=== PATIENT | male | born 1980 | race Caucasian/White ===

== ENCOUNTER → 2016-10-13 | Outpatient (CLI) | payer MEDICAID | LOC: OD 08:23 | PROVIDERS: ATTEND Nurse Practitioner Psychiatric/Mental Health | DX: F41.1 Generalized anxiety disorder (principal) | CPT/HCPCS: 36415; 80178 ==

== ENCOUNTER 2018-04-13 15:56 | Emergency (ER) | payer MEDICAID ==
[2018-04-13 16:44] VITALS: BP 133/84
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
[2018-04-13] MEDS ORDERED: HYDROCODONE/ACETAMINOPHEN 5-325 MG TABLET PO ONE (16:49)
[2018-04-13] MEDS ORDERED: PREDNISONE 20 MG TABLET PO ONE (16:56)
--- NOTE | 2018-04-13 17:39 | RADIOLOGY REPORT (SQ) ---
EXAM DESCRIPTION: SHOULDER LEFT 2 OR MORE VIEWS COMPLETED DATE/TIME: 04/13/2018 5:28 pm REASON FOR STUDY: pulled left shoulder injury today COMPARISON: None. NUMBER OF VIEWS: Three views. TECHNIQUE: Internal rotation, external rotation, and Y view images acquired of the left shoulder. LIMITATIONS: None. FINDINGS: MINERALIZATION: Normal. BONES: No acute fracture or dislocation. No worrisome bone lesions. JOINTS: No dislocation. VISUALIZED LUNGS AND RIBS: No pneumothorax. No rib fracture. SOFT TISSUES: No radiopaque foreign body. OTHER: No other significant finding. IMPRESSION: NO RADIOGRAPHIC EVIDENCE OF ACUTE INJURY. TECHNICAL DOCUMENTATION: JOB ID: [id number] 2010 [employer]- All Rights Reserved Reading location - IP/workstation name: [email or web address]
== END 2018-04-13 17:47 | disposition home or self-care (01) ==
LOC: ER 15:56
DX: S46.912A Strain of unspecified muscle, fascia and tendon at shoulder and upper arm level, left arm, initial encounter (principal); M54.2 Cervicalgia; X50.9XXA Other and unspecified overexertion or strenuous movements or postures, initial encounter; F17.200 Nicotine dependence, unspecified, uncomplicated; Z90.49 Acquired absence of other specified parts of digestive tract
CPT/HCPCS: 99283; 73030; J7512

== ENCOUNTER → 2018-06-12 | Outpatient (CLI) | payer MEDICAID ==
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
== END ==
LOC: OD 09:21
PROVIDERS: ATTEND Internal Medicine
DX: M13.0 Polyarthritis, unspecified (principal)

== ENCOUNTER 2018-08-03 10:54 | Emergency (ER) | payer MEDICAID ==
[2018-08-03 10:59] VITALS: BP 133/80
--- NOTE | 2018-08-03 12:12 | ER Document Report ---
ED Medical Screen (RME) - General Chief Complaint: General Weakness Stated Complaint: DIZZY/HEADACHE Time Seen by Provider: 08/03/18 12:04 TRAVEL OUTSIDE OF THE [place] IN LAST 30 DAYS: No - HPI Notes: 08/03/18 12:11 Patient is a 38-year-old male that presents to the emergency department for chief complaint of weight loss and generalized fatigue. Patient reports 20-25 pound weight loss over the last 2 weeks. He states he is eating and drinking normally. He denies any change in appetite. He reports he has had very minimal sporadic diarrhea but nothing significant. He denies nausea and vomiting. He also reports just feeling generalized fatigue as well as intermittent headaches. He takes levothyroxine for hypothyroidism and denies any change in medication or missed doses.. ROS: GENERAL: Denies fever of chills CV: Denies chest pain PHYSICAL EXAMINATION: GENERAL: Well-appearing, well-nourished and in no acute distress. HEAD: Atraumatic, normocephalic. EYES: Pupils equal round extraocular movements intact, conjunctiva are normal. ENT: Nares patent NECK: Normal range of motion LUNGS: No respiratory distress Musculoskeletal: Normal range of motion NEUROLOGICAL: Normal speech, normal gait. PSYCH: Normal mood, normal affect. MDM: Patient seen and examined for rapid initial assessment. Vital signs reviewed. A comprehensive ED assessment and evaluation of the patient, analysis of test results and completion of the medical decision making process will be conducted by additional ED providers. - Related Data Allergies/Adverse Reactions: methadone HCl [From Methadose] Allergy (Unknown, Verified 04/13/18 15:57) methadone Allergy (Verified 04/13/18 15:57) NSAIDS (Non-Steroidal Anti-Inflamma Allergy (Verified 04/13/18 15:57) Past Medical History - Social History Chew tobacco use (# tins/day): No Frequency of alcohol use: None Drug Abuse: None Pulmonary Medical History: Reports: Hx Asthma Neurological Medical History: Denies: Hx Cerebrovascular Accident Endocrine Medical History: Reports: Hx Hypothyroidism Renal/ Medical History: Denies: Hx Peritoneal Dialysis GI Medical History: Reports: Hx Gastroesophageal Reflux Disease Musculoskeltal Medical History: Reports Hx Arthritis Psychiatric Medical History: Reports: Hx Bipolar Disorder, Hx Depression, Hx Schizophrenia Past Surgical History: Reports: Hx Cholecystectomy, Hx Oral Surgery, Hx Orthopedic Surgery - toe repair, Hx Tonsillectomy - Immunizations Hx Diphtheria, Pertussis, Tetanus Vaccination: No Physical Exam - Vital signs Vitals: Temp Pulse Resp BP Pulse Ox 98.7 F 79 18 133/80 H 96 08/03/18 10:58 08/03/18 10:58 08/03/18 10:58 08/03/18 10:58 08/03/18 10:58 Course - Vital Signs Vital signs: Temp Pulse Resp BP Pulse Ox 98.7 F 79 18 133/80 H 96 08/03/18 10:58 08/03/18 10:58 08/03/18 11:56 08/03/18 10:58 08/03/18 10:58 Doctor's Discharge - Discharge Referrals: SOM SULLIVAN MD [Primary Care Provider] - Follow up as needed
[2018-08-03 12:48] LABS: ABSOLUTE BASOPHILS # (AUTO) 0.1 10^3/uL (0.0-0.2); ABSOLUTE LYMPHOCYTES (AUTO) 2.7 10^3/uL (0.5-4.7); ABSOLUTE MONOCYTES (AUTO) 0.7 10^3/uL (0.1-1.4); ABSOLUTE NEUT (AUTO) 5.4 10^3/uL (1.7-8.2); BASOPHILS % (AUTO) 1.1 % (0-2); EOSINOPHILS % (AUTO) 0.5 % (0-6); HEMATOCRIT 52.2 % (37.9-51.0); HEMOGLOBIN 17.6 g/dL (13.5-17.0); LYMPHOCYTES % (AUTO) 30.5 % (13-45); MEAN CORPUSCULAR HEMOGLOBIN 29.3 pg (27.0-33.4); MEAN CORPUSCULAR HGB CONC 33.7 g/dL (32.0-36.0); MEAN CORPUSCULAR VOLUME 87 fl (80-97); PLATELET COUNT 313 10^3/uL (150-450); RED CELL DISTRIBUTION WIDTH 13.8 % (11.5-14.0); SEGMENTED NEUTROPHILS % (AUTO) 59.9 % (42-78); TOTAL CELLS COUNTED % (AUTO) 100 %
--- NOTE | 2018-08-03 12:54 | RADIOLOGY REPORT (SQ) ---
EXAM DESCRIPTION: CT HEAD WITHOUT COMPLETED DATE/TIME: 08/03/2018 12:45 pm REASON FOR STUDY: headache COMPARISON: None. TECHNIQUE: Axial images acquired through the brain without intravenous contrast. Images reviewed wi th bone, brain and subdural windows. Additional sagittal and coronal reconstructions were generated. Images stored on PACS. All CT scanners at this facility use dose modulation, iterative reconstruction, and/or weight based d osing when appropriate to reduce radiation dose to as low as reasonably achievable (ALARA). [facility]: Dose Right [facility]: CareDose [facility]: Dose Right [facility]: Teradose 4D [facility]: Qiniu RADIATION DOSE: CT Rad equipment meets quality standard of care and radiation dose reduction techniq ues were employed. CTDIvol: 53.2 mGy. DLP: 1070 mGy-cm. mGy. LIMITATIONS: None. FINDINGS: VENTRICLES: Normal size and contour. CEREBRUM: No masses. No hemorrhage. No midline shift. No evidence for acute infarction. Normal gra y/white matter differentiation. No areas of low density in the white matter. CEREBELLUM: No masses. No hemorrhage. No alteration of density. No evidence for acute infarction. EXTRAAXIAL SPACES: No fluid collections. No masses. ORBITS AND GLOBE: No intra- or extraconal masses. Normal contour of globe without masses. CALVARIUM: No fracture. PARANASAL SINUSES: No fluid or mucosal thickening. SOFT TISSUES: No mass or hematoma. OTHER: No other significant finding. IMPRESSION: No acute intracranial pathology. No noncontrast CT findings to explain headaches. EVIDENCE OF ACUTE STROKE: NO. COMMENT: Quality ID # [id number]: Final reports with documentation of one or more dose reduction techniques (e.g., Automated exposure control, adjustment of the mA and/or kV according to patient size, use of iterative reconstruction technique) TECHNICAL DOCUMENTATION: JOB ID: [id number] [employer]- All Rights Reserved Reading location - IP/workstation name: [email or web address]
[2018-08-03] MEDS ORDERED: NORMAL SALINE 1000 ML 1,000 ML IV ONE (12:55)
[2018-08-03] MEDS ORDERED: NORMAL SALINE 1000 ML 1,000 ML IV PRN (12:55)
--- NOTE | 2018-08-03 12:58 | ER Document Report ---
ED Dizziness/Weakness - General Chief Complaint: General Weakness Stated Complaint: DIZZY/HEADACHE Time Seen by Provider: 08/03/18 12:04 Mode of Arrival: Ambulatory Information source: Patient Notes: History of Present Illness Chief Complaint: [dizziness] [ Patient is a 38-year-old male that presents to the emergency department for chief complaint of weight loss and generalized fatigue. Patient reports 20-25 pound weight loss over the last 2 weeks. He states he is eating and drinking normally. He denies any change in appetite. He reports he has had very minimal sporadic diarrhea but nothing significant. He denies nausea and vomiting. He also reports just feeling generalized fatigue as well as intermittent headaches. He takes levothyroxine for hypothyroidism and denies any change in medication or missed doses.. ] History obtained from [patient] Symptoms began:[ today] Onset: [gradual] Timing: [constant, lasts hours, persists] Quality: [Lightheadedness"] Activity at onset: [rest] Intensity: [moderate] Location: [generalized] Aggravating factors: [none] Relieving factors: [none] Denies neck pain or stiffness Denies visual loss or eye pain Denies head injury Denies incontinence, seizure, LOC Denies focal numbness Denies focal weakness Review of systems: All other systems negative as reviewed. CONSTITUTIONAL No fever. EYES No eye pain. ENT No URI symptoms, No sore throat, No ear pain. CARDIOVASCULAR No chest pain, No palpitations, No edema. RESPIRATORY No Cough, No SOB, No wheezing. GASTROINTESTINAL No abdominal pain, No vomiting, No diarrhea, No melena, No rectal bleeding. GENITOURINARY No UTI symptoms. MUSCULOSKELETAL No back pain. SKIN No Rash. NEUROLOGIC No Headache, No paralysis, No parathesias. ENDOCRINE No polyuria. HEMO/LYMPATIC Patient does not bruise easily. PSYCHIATRIC No depression. Physical Exam CONSTITUTIONAL Vital signs reviewed, Comfortable, Alert and oriented X 3. HEAD Atraumatic, Normal cephalic. EYES No discharge from eye, Sclera are not injected, Extraocular muscles intact, Conjunctiva are normal.perrl,2mm, no photophobia, no nystagmus, fundi wnl. ENT Ears normal to inspection, Nose examination normal, Oropharynx normal, Mucous membranes pink, moist, normal in color. NECK Normal inspection, supple, Normal ROM, No jugular venous distention, No meningeal signs, no carotid bruit or tenderness. RESPIRATORY/CHEST Chest is non-tender, Breath sounds normal, No respiratory distress. CARDIOVASCULAR RRR, Heart sounds normal. ABDOMEN Abdomen is non-tender, No masses, Bowel sounds normal, No distension, No peritoneal signs. BACK Normal inspection. UPPER EXTREMITY Inspection normal, No cyanosis/clubbing/edema.2+ radial pulses. LOWER EXTREMITY Inspection normal, No cyanosis/clubbing/edema, No calf tenderness.2+ femoral pulses. NEURO [ ]cn intact, no astreixis, no pronator drift, finger to nose testing coordinated bilaterally, 1+ deep tendon reflexes x 4 ext, down going babinski bilaterally, normal speech, Motor exam normal, Sensory exam normal. SKIN Body full of tattoos Skin is warm and dry, No rash.Capillary refill normal. LYMPHATIC No adenopathy in neck. PSYCHIATRIC Normal affect. TRAVEL OUTSIDE OF THE [place] IN LAST 30 DAYS: No - HPI Notes: Dictated - Related Data Allergies/Adverse Reactions: methadone HCl [From Methadose] Allergy (Unknown, Verified 04/13/18 15:57) methadone Allergy (Verified 04/13/18 15:57) NSAIDS (Non-Steroidal Anti-Inflamma Allergy (Verified 04/13/18 15:57) Past Medical History - Social History Smoking Status: Never Smoker Chew tobacco use (# tins/day): No Frequency of alcohol use: None Drug Abuse: None Lives with: Family Family History: Reviewed & Not Pertinent Patient has suicidal ideation: No Patient has homicidal ideation: No Pulmonary Medical History: Reports: Hx Asthma Neurological Medical History: Denies: Hx Cerebrovascular Accident Endocrine Medical History: Reports: Hx Hypothyroidism Renal/ Medical History: Denies: Hx Peritoneal Dialysis GI Medical History: Reports: Hx Gastroesophageal Reflux Disease Musculoskeletal Medical History: Reports Hx Arthritis Psychiatric Medical History: Reports: Hx Bipolar Disorder, Hx Depression, Hx Schizophrenia Past Surgical History: Reports: Hx Cholecystectomy, Hx Oral Surgery, Hx Orthopedic Surgery - toe repair, Hx Tonsillectomy - Immunizations Hx Diphtheria, Pertussis, Tetanus Vaccination: No Review of Systems - Review of Systems Notes: Dictated Physical Exam - Vital signs Vitals: Temp Pulse Resp BP Pulse Ox 98.7 F 79 18 133/80 H 96 08/03/18 10:58 08/03/18 10:58 08/03/18 10:58 08/03/18 10:58 08/03/18 10:58 - Notes Notes: Dictated Course - Vital Signs Vital signs: Temp Pulse Resp BP Pulse Ox 98.7 F 79 18 133/80 H 96 08/03/18 10:58 08/03/18 10:58 08/03/18 11:56 08/03/18 10:58 08/03/18 10:58 - Laboratory Result Diagrams: 08/03/18 12:34 08/03/18 12:34 Laboratory results interpreted by me: 08/03/18 08/03/18 12:34 12:34 RBC 6.00 H Hgb 17.6 H Hct 52.2 H TSH 23.60 H Free T4 0.45 L Discharge - Discharge Clinical Impression: Malaise Hypothyroidism Qualifiers: Hypothyroidism type: acquired Qualified Code(s): E03.9 - Hypothyroidism, unspecified Retained feces Qualifiers: Constipation type: slow transit constipation Qualified Code(s): K59.01 - Slow transit constipation Condition: Fair Instructions: Hypothyroidism ([facility]), Constipation ([facility]) Prescriptions: Lactulose [Cephulac Syrup 20 gm/30 ml Udcup] 20 gm PO DAILY #120 udc Levothyroxine Sodium [Synthroid 0.075 mg Tablet] 0.075 mg PO DAILY #30 tablet Referrals: SOM SULLIVAN MD [Primary Care Provider] - Follow up as needed
--- NOTE | 2018-08-03 13:15 | RADIOLOGY REPORT (SQ) ---
EXAM DESCRIPTION: CHEST SINGLE VIEW COMPLETED DATE/TIME: 08/03/2018 12:58 pm REASON FOR STUDY: fatigue COMPARISON: 07/11/2016 EXAM PARAMETERS: NUMBER OF VIEWS: One view. TECHNIQUE: Single frontal radiographic view of the chest acquired. RADIATION DOSE: NA LIMITATIONS: None. FINDINGS: LUNGS AND PLEURA: No opacities, masses or pneumothorax. No pleural effusion. MEDIASTINUM AND HILAR STRUCTURES: No masses. Contour normal. HEART AND VASCULAR STRUCTURES: Heart normal in size. Normal vasculature. BONES: No acute findings. HARDWARE: None in the chest. OTHER: No other significant finding. IMPRESSION: NO ACUTE RADIOGRAPHIC FINDING IN THE CHEST. TECHNICAL DOCUMENTATION: JOB ID: [id number] [employer]- All Rights Reserved Reading location - IP/workstation name: [email or web address]
[2018-08-03 13:20] LABS: ANION GAP 8 (5-19); BLOOD UREA NITROGEN 8 mg/dL (7-20); CALCIUM 9.7 mg/dL (8.4-10.2); CARBON DIOXIDE 29 mmol/L (22-30); CHLORIDE 103 mmol/L (98-107); GLUCOSE 101 mg/dL (75-110); POTASSIUM 4.5 mmol/L (3.6-5.0); SODIUM 139.6 mmol/L (137-145)
[2018-08-03 13:37] LABS: FREE T3 3.2 pg/mL (2.77-5.27); FREE T4 (FREE THYROXINE) 0.45 ng/dL (0.78-2.19)
[2018-08-03 13:51] LABS: THYROID STIMULATING HORMONE 23.6 uIU/mL (0.47-4.68)
--- NOTE | 2018-08-03 13:52 | RADIOLOGY REPORT (SQ) ---
EXAM DESCRIPTION: KUB/ABDOMEN (SINGLE VIEW) COMPLETED DATE/TIME: 08/03/2018 1:24 pm REASON FOR STUDY: Abdominal pain COMPARISON: None. NUMBER OF VIEWS: One view. TECHNIQUE: Supine radiographic image of the abdomen acquired. LIMITATIONS: None. FINDINGS: BOWEL GAS PATTERN: Normal bowel gas pattern. No dilated loops. CALCIFICATIONS: No suspicious calcifications. SOFT TISSUES: No gross mass or suggestion of organomegaly. HARDWARE: Surgical clips. BONES: No acute fracture. No worrisome bone lesions. OTHER: No other significant finding. IMPRESSION: NO RADIOGRAPHIC EVIDENCE FOR ACUTE ABDOMINAL DISEASE. TECHNICAL DOCUMENTATION: JOB ID: [id number] [employer]- All Rights Reserved Reading location - IP/workstation name: [email or web address]
[2018-08-03 13:53] LABS: APPEARANCE,URINE CLEAR; BILIRUBIN,URINE NEGATIVE (NEGATIVE); COLOR,URINE STRAW; GLUCOSE, URINE NEGATIVE (NEGATIVE); KETONES,URINE NEGATIVE (NEGATIVE); LEUKOCYTE ESTERASE,URINE NEGATIVE (NEGATIVE); NITRITE,URINE NEGATIVE (NEGATIVE); PROTEIN,URINE NEGATIVE (NEGATIVE); URINE SPECIFIC GRAVITY 1.005; UROBILINOGEN,URINE NEGATIVE mg/dL (<2.0)
[2018-08-03 14:18] LABS: URINE AMPHETAMINES SCREEN NEGATIVE; URINE BARBITURATES SCREEN NEGATIVE; URINE BENZODIAZEPINES SCREEN NEGATIVE; URINE COCAINE SCREEN NEGATIVE; URINE MARIJUANA (THC) SCREEN NEGATIVE; URINE METHADONE SCREEN NEGATIVE; URINE PHENCYCLIDINE SCREEN NEGATIVE
[2018-08-03] MEDS ORDERED: LEVOTHYROXINE SODIUM INJ/PF 0.5 MG SDV IV ONE (15:43)
[2018-08-03] MEDS ORDERED: LEVOTHYROXINE SODIUM 0.05 MG TABLET PO ONE (16:08)
== END 2018-08-03 16:24 | disposition home or self-care (01) ==
LOC: ER 10:54
DX: E03.9 Hypothyroidism, unspecified (principal); Z79.899 Other long term (current) drug therapy; K59.01 Slow transit constipation; R63.4 Abnormal weight loss; R42 Dizziness and giddiness; R53.81 Other malaise; R53.83 Other fatigue; R19.7 Diarrhea, unspecified; R51 Headache; J45.909 Unspecified asthma, uncomplicated; Z88.5 Allergy status to narcotic agent; Z88.8 Allergy status to other drugs, medicaments and biological substances
CPT/HCPCS: 99285; 96360; 36415; 84439; 83735; 84443; 85025; 80048; 81001; 80307; 84481; 71045; 74018; 70450; J3490; J7030

== ENCOUNTER 2018-12-11 22:46 | Emergency (ER) | payer MEDICAID ==
--- NOTE | 2018-12-11 23:28 | RADIOLOGY REPORT (SQ) ---
EXAM DESCRIPTION: XR HAND 1-2 VIEWS COMPLETED DATE/TME: 12/11/2018 00:00 CLINICAL HISTORY: 38 years, Male, injury Comparison: None FINDINGS: No fracture or dislocation. Soft tissues are unremarkable. IMPRESSION: No acute abnormality.
[2018-12-12] MEDS ORDERED: DOXYCYCLINE HYCLATE 100 MG TABLET PO ONE (00:46)
[2018-12-12] MEDS ORDERED: ACETAMINOPHEN WITH CODEINE #3 TABLET PO ONE (01:03)
--- NOTE | 2018-12-12 01:56 | ER Document Report ---
ED Hand/Wrist Injury - General Chief Complaint: Hand Injury Stated Complaint: FINGER LACERATION Time Seen by Provider: 12/11/18 23:44 Primary Care Provider: SOM SULLIVAN MD [Primary Care Provider] - Follow up as needed IVET ARIAS MD [ACTIVE STAFF] - Follow up as needed Mode of Arrival: Ambulatory Information source: Patient, Relative Notes: Patient is a 38-year-old male comes emergency room complaining of right middle finger injury. Patient states that he was changing a disc on an angle cylinder grinder this morning at home and evidently the disc had an short in the cord and has he was attempting to change the disc itself the shorted cord kicked on and caused the disc to turn in his hands causing a laceration to the palmar surface of the right middle finger. Patient did not think that much about it and will continue out working throughout the day but over the course of the day he is gotten a little more redness in that area and he is also gotten more swelling and a little bit more pain and discomfort. He is afraid it may be he is getting infected and possibly broke his finger when it kicked on. TRAVEL OUTSIDE OF THE [place] IN LAST 30 DAYS: No - HPI Injury to: Middle finger Onset: This morning Where: Home Timing: Constant, Still present Quality of pain: Achy, Sharp, Throbbing Severity: Moderate Pain Level: 3 Context: Swelling - Related Data Allergies/Adverse Reactions: methadone HCl [From Methadose] Allergy (Unknown, Verified 04/13/18 15:57) methadone Allergy (Verified 04/13/18 15:57) NSAIDS (Non-Steroidal Anti-Inflamma Allergy (Verified 04/13/18 15:57) Past Medical History - General Information source: Patient - Social History Smoking Status: Unknown if Ever Smoked Cigarette use (# per day): No Chew tobacco use (# tins/day): No Smoking Education Provided: No Drug Abuse: None Lives with: Family Family History: Reviewed & Not Pertinent Patient has suicidal ideation: No Patient has homicidal ideation: No Pulmonary Medical History: Reports: Hx Asthma Neurological Medical History: Denies: Hx Cerebrovascular Accident Endocrine Medical History: Reports: Hx Hypothyroidism Renal/ Medical History: Denies: Hx Peritoneal Dialysis GI Medical History: Reports: Hx Gastroesophageal Reflux Disease Musculoskeletal Medical History: Reports Hx Arthritis Psychiatric Medical History: Reports: Hx Bipolar Disorder, Hx Depression, Hx Schizophrenia Past Surgical History: Reports: Hx Cholecystectomy, Hx Oral Surgery, Hx Orthopedic Surgery - toe repair, Hx Tonsillectomy - Immunizations Hx Diphtheria, Pertussis, Tetanus Vaccination: No Review of Systems - Review of Systems Constitutional: No symptoms reported EENT: No symptoms reported Cardiovascular: No symptoms reported Respiratory: No symptoms reported Gastrointestinal: No symptoms reported Genitourinary: No symptoms reported Male Genitourinary: No symptoms reported Musculoskeletal: Muscle pain Skin: No symptoms reported, See HPI, Other - laceration right middle finger Hematologic/Lymphatic: No symptoms reported Neurological/Psychological: No symptoms reported -: Yes All other systems reviewed and negative Physical Exam - Vital signs Vitals: Temp Pulse Resp BP Pulse Ox 98.1 F 79 16 121/71 97 12/11/18 22:55 12/11/18 22:55 12/11/18 22:55 12/11/18 22:55 12/11/18 22:55 Interpretation: Normal - General General appearance: Appears well, Alert - Respiratory Respiratory status: No respiratory distress Chest status: Nontender Breath sounds: Normal, Rhonchi. No: Rales, Wheezing Chest palpation: Normal - Cardiovascular Rhythm: Regular Heart sounds: Normal auscultation Murmur: No - Extremities General upper extremity: Tender, Edema, Normal ROM, Normal strength Hand: Tender, Laceration, No evidence of FB, Swelling. No: Deformity, Ecchymosis, Nail injury, Tendon deficit Notes: Examination of the right middle finger shows a closed 1 cm laceration to the Rose side of the right middle finger between the pip and the mip but not at the joint. The laceration is closed and not bleeding. Attempts to open were not successful. Unable to make it bleed after soaking. Finger has full range of motion and no evident tendon involvement. Good cap refill and sensation distally noted. Good strength against resistance. - Skin Notes: See musculosketal above. 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 Very tough skin. Course - Re-evaluation Re-evalutation: 12/16/18 18:49 Patients laceration was well over 12 hours and the lac was closed and did not need sutures. - Vital Signs Vital signs: Temp Pulse Resp BP Pulse Ox 98 F 75 18 112/72 99 12/12/18 02:03 12/12/18 02:03 12/12/18 02:03 12/12/18 02:03 12/12/18 02:03 Discharge - Discharge Clinical Impression: Finger laceration Qualifiers: Encounter type: initial encounter Finger: middle finger Damage to nail status: without damage Foreign body presence: without foreign body Laterality: right Qualified Code(s): S61.212A - Laceration without foreign body of right middle finger without damage to nail, initial encounter Condition: Stable Disposition: HOME, SELF-CARE Instructions: Antibiotic Ointment Protection ([facility]), Laceration Care ([facility]), Oral Narcotic Medication ([facility]), Prophylactic Antibiotic ([facility]), Soap Cleansing ([facility]) Additional Instructions: Home and rest. As we discussed take all the antibiotics. Leave the splint on until Monday after Monday at the take off the splint in an attempt to move the finger up and down is the showed you. If you are able to move the finger and on upward and downward motion and bending it then you do not have to follow-up with orthopedist. If you have difficulty again straightening or bending it at all he will need to see an orthopedist I am giving you the name the orthopedist on-call today he may contact his office to see if he can accommodate you. It is highly important that you take all the antibiotics. Should you have any concerns or problems were unable to get into the orthopedist and had an feel that you need to see someone come back to ER let us recheck you out. Prescriptions: Acetaminophen with Codeine [Tylenol #3 Tablet] 1 each PO Q4 PRN #15 tablet PRN Reason: Doxycycline Hyclate 100 mg PO BID #20 capsule Referrals: SOM SULLIVAN MD [Primary Care Provider] - Follow up as needed IVET ARIAS MD [ACTIVE STAFF] - Follow up as needed
[2018-12-12 02:04] VITALS: BP 112/72
== END 2018-12-12 02:04 | disposition home or self-care (01) ==
LOC: ER 22:46
DX: S61.212A Laceration without foreign body of right middle finger without damage to nail, initial encounter (principal); W29.8XXA Contact with other powered hand tools and household machinery, initial encounter; Z90.49 Acquired absence of other specified parts of digestive tract
CPT/HCPCS: 99283; 73120; J3490

== ENCOUNTER 2019-06-14 11:06 | Emergency (ER) | payer SELFPAY ==
[2019-06-14 11:10] VITALS: BP 135/89
[2019-06-14] MEDS ORDERED: DIPH/PERTUSS(ACELL)/TETANUS VAC/PF 0.5 ML SYR (>=10YO) IM ONE (11:14)
--- NOTE | 2019-06-14 11:21 | ER Document Report ---
HPI - HPI Time Seen by Provider: 06/14/19 11:13 Pain Level: 4 Notes: Patient is a 39-year-old male with history of hypothyroidism who presents complaining of puncture wound to his right anterior proximal palm by a sania nail prior to arrival. Patient states that he pulled his hand off of the board that contain the nail immediately and noticed that the nail was fully intact otherwise. Patient states that he is able to move his fingers without difficulties. He has not had any uncontrolled bleeding. Patient states that he knew his tetanus was out of date which is why he presented here today. No other concerns or complaints. Denies any headache, fever, URI, sore throat, chest pain, palpitations, syncope, cough, shortness of breath, wheeze, dyspnea, abdominal pain, nausea/vomiting/diarrhea, urinary retention, dysuria, hematuria, numbness, muscle paralysis/weakness, or rash. - ROS Systems Reviewed and Negative: Yes All other systems reviewed and negative - REPRODUCTIVE Reproductive: DENIES: : Past Medical History - Social History Smoking Status: Never Smoker Chew tobacco use (# tins/day): No Frequency of alcohol use: None Drug Abuse: None Family History: Reviewed & Not Pertinent Patient has suicidal ideation: No Patient has homicidal ideation: No Pulmonary Medical History: Reports: Hx Asthma Neurological Medical History: Denies: Hx Cerebrovascular Accident Endocrine Medical History: Reports: Hx Hypothyroidism Renal/ Medical History: Denies: Hx Peritoneal Dialysis GI Medical History: Reports: Hx Gastroesophageal Reflux Disease Musculoskeletal Medical History: Reports Hx Arthritis Psychiatric Medical History: Reports: Hx Bipolar Disorder, Hx Depression, Hx Schizophrenia Past Surgical History: Reports: Hx Cholecystectomy, Hx Oral Surgery, Hx Orthopedic Surgery - toe repair, Hx Tonsillectomy - Immunizations Hx Diphtheria, Pertussis, Tetanus Vaccination: No Vertical Provider Document - CONSTITUTIONAL Agree With Documented VS: Yes Notes: PHYSICAL EXAMINATION: GENERAL: Well-appearing, well-nourished and in no acute distress. HEAD: Atraumatic, normocephalic. NECK: Normal range of motion, supple without lymphadenopathy. No midline tenderness. LUNGS: Breath sounds clear to auscultation bilaterally and equal. No wheezes rales or rhonchi. HEART: Regular rate and rhythm without murmurs, rubs, gallops. Musculoskeletal: Rt hand: + puncture site noted w/o any erythema or bleeding noted. No induration or purulence. + mild tenderness to the skin puncture site. No bony tenderness. No erythema, warmth, ecchymosis, deformity, or swelling noted. N/V intact distal. FROM to passive/active. 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 Extremities: No cyanosis, clubbing, or edema b/l. Peripheral pulses 2+. Capillary refill less than 3 seconds. NEUROLOGICAL: Normal speech, normal gait. Normal sensory, motor exams otherwise unremarkable PSYCH: Normal mood, normal affect. SKIN: see above. No rash - INFECTION CONTROL TRAVEL OUTSIDE OF THE [place] IN LAST 30 DAYS: No Course - Re-evaluation Re-evalutation: 06/14/19 Patient is an afebrile, well-hydrated, 39-year-old male who presents to the ED with puncture wound to right hand. Vitals are acceptable without any significant tachycardia, tachypnea, or hypoxia. PE is otherwise unremarkable for any neurovascular compromise, obvious tendon/ligament rupture, obvious fracture/dislocation, septic joint, retained foreign body. X-ray was unremarkable for any acute pathology. Tetanus updated today. Patient declined any Tylenol or ice. Patient is nontoxic-appearing. Wound dressing placed. No other labs or imaging warranted at this time based on H&P. Conservative measures otherwise for symptoms. Recheck with your PCM in 3-5 days. Consider consult orthopedics. Return to the ED with any worsening/concerning symptoms otherwise as reviewed in discharge. Patient is in agreement. - Vital Signs Vital signs: Temp Pulse Resp BP Pulse Ox 97.9 F 86 18 135/89 H 98 06/14/19 11:09 06/14/19 11:09 06/14/19 11:09 06/14/19 11:09 06/14/19 11:09 Discharge - Discharge Clinical Impression: Puncture wound of hand Qualifiers: Encounter type: initial encounter Foreign body presence: without foreign body Laterality: right Qualified Code(s): S61.431A - Puncture wound without foreign body of right hand, initial encounter Condition: Stable Disposition: HOME, SELF-CARE Additional Instructions: Keep the skin clean Wash with soap and water Tylenol/ibuprofen if needed Triple antibiotic ointment daily Epson salt soaks Take medication as directed Monitor for any worsening symptoms Recheck with your PCM in 3-5 days Consider consult with orthopedics for ongoing/worsening symptoms Return to the ED with any worsening symptoms and/or development of fever, headache, chest pain, palpitations, syncope, shortness of breath, trouble breathing, abdominal pain, n/v/d, abscess, purulent discharge, red streaks, worsening swelling, or other worsening symptoms that are concerning to you. Prescriptions: Cephalexin Monohydrate [Keflex 500 mg Capsule] 500 mg PO TID #30 capsule Forms: Elevated Blood Pressure Referrals: SOM SULLIVAN MD [Primary Care Provider] - Follow up as needed MIGUEL ANGEL CHUN JR, DO [ACTIVE PROVISIONAL STAFF] - Follow up as needed
--- NOTE | 2019-06-14 11:44 | RADIOLOGY REPORT (SQ) ---
EXAM DESCRIPTION: HAND RIGHT 3 VIEWS COMPLETED DATE/TIME: 06/14/2019 11:30 am REASON FOR STUDY: nail puncture prox anterior palm COMPARISON: PA and lateral views of the right hand from 12/11/2018. EXAM PARAMETERS: NUMBER OF VIEWS: Three views. TECHNIQUE: AP, lateral and oblique radiographic images acquired of the right hand. LIMITATIONS: None. FINDINGS: MINERALIZATION: Normal. BONES: No acute fracture or dislocation. JOINTS: No effusions. SOFT TISSUES: No soft tissue swelling, radiopaque foreign body, or subcutaneous emphysema. OTHER: No other finding. IMPRESSION: No acute osseous abnormality of the right hand. TECHNICAL DOCUMENTATION: JOB ID: [id number] [employer]- All Rights Reserved Reading location - IP/workstation name: [email or web address]
== END 2019-06-14 11:55 | disposition home or self-care (01) ==
LOC: ER 11:06
DX: S61.431A Puncture wound without foreign body of right hand, initial encounter (principal); W45.0XXA Nail entering through skin, initial encounter; Y93.89 Activity, other specified; J45.909 Unspecified asthma, uncomplicated; Z23 Encounter for immunization
CPT/HCPCS: 90471; 90715; 99283

== ENCOUNTER 2019-07-26 09:22 | Emergency (ER) | payer SELFPAY ==
[2019-07-26] MEDS ORDERED: AMPICILLIN SOD/SULBACTAM 3 GM VIAL IV ONE (10:02)
--- NOTE | 2019-07-26 10:05 | ER Document Report ---
ED Medical Screen (RME) - General Chief Complaint: Ear Pain Stated Complaint: EAR PAIN Time Seen by Provider: 07/26/19 09:58 Primary Care Provider: SOM SULLIVAN MD [Primary Care Provider] - Follow up as needed Notes: Patient is a 39-year-old male who presents to the emergency department with a chief complaint of right ear pain. Patient states that he ended up having ear pain a little over a week ago. He was seen by his primary care provider and he was placed on Keflex. Patient states that his symptoms have gotten worse and now he notices some swelling to his face. Exam: Edema noted to external auditory canal. Tympanic membrane without erythema. I have greeted and performed a rapid initial assessment of this patient. A comprehensive ED assessment and evaluation of the patient, analysis of test results and completion of medical decision making process will be conducted by an additional ED providers. TRAVEL OUTSIDE OF THE [place] IN LAST 30 DAYS: No - Related Data Allergies/Adverse Reactions: methadone HCl [From [facility]] Allergy (Unknown, Verified 07/26/19 09:55) methadone Allergy (Verified 07/26/19 09:55) NSAIDS (Non-Steroidal Anti-Inflamma Allergy (Verified 07/26/19 09:55) Home Medications: [facility] Keflex 500mg TID Past Medical History - Social History Chew tobacco use (# tins/day): No Frequency of alcohol use: None Drug Abuse: None Pulmonary Medical History: Reports: Hx Asthma Neurological Medical History: Denies: Hx Cerebrovascular Accident Endocrine Medical History: Reports: Hx Hypothyroidism Renal/ Medical History: Denies: Hx Peritoneal Dialysis GI Medical History: Reports: Hx Gastroesophageal Reflux Disease Musculoskeltal Medical History: Reports Hx Arthritis Psychiatric Medical History: Reports: Hx Bipolar Disorder, Hx Depression, Hx Schizophrenia Past Surgical History: Reports: Hx Cholecystectomy, Hx Oral Surgery, Hx Orthopedic Surgery - toe repair, Hx Tonsillectomy - Immunizations Hx Diphtheria, Pertussis, Tetanus Vaccination: No Physical Exam - Vital signs Vitals: Temp Pulse Resp BP Pulse Ox 98.7 F 93 18 145/94 H 97 07/26/19 09:32 07/26/19 09:32 07/26/19 09:32 07/26/19 09:32 07/26/19 09:32 Course - Vital Signs Vital signs: Temp Pulse Resp BP Pulse Ox 98.7 F 93 18 145/94 H 97 07/26/19 09:32 07/26/19 09:32 07/26/19 09:32 07/26/19 09:32 07/26/19 09:32 Doctor's Discharge - Discharge Referrals: SOM SULLIVAN MD [Primary Care Provider] - Follow up as needed
[2019-07-26 10:55] LABS: ABSOLUTE BASOPHILS # (AUTO) 0.1 10^3/uL (0.0-0.2); ABSOLUTE EOSINOPHILS # (AUTO) 0.1 10^3/uL (0.0-0.6); ABSOLUTE LYMPHOCYTES (AUTO) 3.4 10^3/uL (0.5-4.7); ABSOLUTE MONOCYTES (AUTO) 0.9 10^3/uL (0.1-1.4); EOSINOPHILS % (AUTO) 1.3 % (0-6); HEMOGLOBIN 16.8 g/dL (13.5-17.0); LYMPHOCYTES % (AUTO) 29.5 % (13-45); MEAN CORPUSCULAR HEMOGLOBIN 30.9 pg (27.0-33.4); MEAN CORPUSCULAR VOLUME 88 fl (80-97); MONOCYTES % (AUTO) 7.4 % (3-13); PLATELET COUNT 299 10^3/uL (150-450); RED BLOOD COUNT 5.44 10^6/uL (4.35-5.55); RED CELL DISTRIBUTION WIDTH 13.5 % (11.5-14.0); SEGMENTED NEUTROPHILS % (AUTO) 60.8 % (42-78); TOTAL CELLS COUNTED % (AUTO) 100 %; WHITE BLOOD COUNT 11.5 10^3/uL (4.0-10.5)
--- NOTE | 2019-07-26 10:57 | RADIOLOGY REPORT (SQ) ---
EXAM DESCRIPTION: CT HEAD WITHOUT COMPLETED DATE/TIME: 07/26/2019 10:24 am REASON FOR STUDY: ear pain; eval mastoiditis? COMPARISON: 08/03/2018 TECHNIQUE: Axial images acquired through the brain without intravenous contrast. Images reviewed wi th bone, brain and subdural windows. Additional sagittal and coronal reconstructions were generated. Additional bone reconstructions were performed through the skullbase. Images stored on PACS. All CT scanners at this facility use dose modulation, iterative reconstruction, and/or weight based d osing when appropriate to reduce radiation dose to as low as reasonably achievable (ALARA). [facility]: Dose Right [facility]: CareDose [facility]: Dose Right [facility]: Teradose 4D [facility]: [employer] RADIATION DOSE: CT Rad equipment meets quality standard of care and radiation dose reduction techniq ues were employed. CTDIvol: 53.2 mGy. DLP: 1044 mGy-cm. mGy. LIMITATIONS: None. FINDINGS: VENTRICLES: Normal size and contour. CEREBRUM: No masses. No hemorrhage. No midline shift. No evidence for acute infarction. Normal gra y/white matter differentiation. No areas of low density in the white matter. CEREBELLUM: No masses. No hemorrhage. No alteration of density. No evidence for acute infarction. EXTRAAXIAL SPACES: No fluid collections. No masses. ORBITS AND GLOBE: No intra- or extraconal masses. Normal contour of globe without masses. CALVARIUM: No fracture. PARANASAL SINUSES: No fluid or mucosal thickening. SOFT TISSUES: No mass or hematoma. OTHER: No other significant finding. IMPRESSION: No mastoid effusion to suggest mastoiditis. No other evidence of acute intracranial process. EVIDENCE OF ACUTE STROKE: NO. COMMENT: Quality ID # [id number]: Final reports with documentation of one or more dose reduction techniques (e.g., Automated exposure control, adjustment of the mA and/or kV according to patient size, use of iterative reconstruction technique) TECHNICAL DOCUMENTATION: JOB ID: [id number] [employer]- All Rights Reserved Reading location - IP/workstation name: [email or web address]
[2019-07-26 11:15] LABS: ANION GAP 10 (5-19); BLOOD UREA NITROGEN 11 mg/dL (7-20); CALCIUM 9.9 mg/dL (8.4-10.2); CARBON DIOXIDE 28 mmol/L (22-30); CHLORIDE 104 mmol/L (98-107); GLUCOSE 95 mg/dL (75-110); POTASSIUM 4.3 mmol/L (3.6-5.0)
--- NOTE | 2019-07-26 17:31 | ER Document Report ---
ED ENT - General Chief Complaint: Ear Pain Stated Complaint: EAR PAIN Time Seen by Provider: 07/26/19 09:58 Primary Care Provider: SOM SULLIVAN MD [ACTIVE STAFF] - Follow up in 3-5 days STEVE BOATENG DO [ASSOCIATE] - Follow up as needed Notes: Patient is a 39-year-old male who comes in with bilateral ear pain. States that he was on Keflex but that is not helping. Patient has had pain into his right jaw. Denies fever. Apparently had an upper respiratory infection that the whole family had few weeks ago but states that the ear pain has persisted. He is not taking any antihistamines at this time. No nausea vomiting or headache. States that he is occasionally feel off balance. TRAVEL OUTSIDE OF THE [place] IN LAST 30 DAYS: No - HPI Patient complains to provider of: Ear problem Onset/Duration: Gradual Quality of pain: Dull Severity: Mild Location of pain: Ears Associated symptoms: Congestion Similar symptoms previously: Yes Recently seen / treated by doctor: Yes - Related Data Allergies/Adverse Reactions: methadone HCl [From [facility]] Allergy (Unknown, Verified 07/26/19 09:55) methadone Allergy (Verified 07/26/19 09:55) NSAIDS (Non-Steroidal Anti-Inflamma Allergy (Verified 07/26/19 09:55) Home Medications: [facility] Keflex 500mg TID Past Medical History - Social History Smoking Status: Never Smoker Chew tobacco use (# tins/day): No Frequency of alcohol use: None Drug Abuse: None Family History: Reviewed & Not Pertinent Patient has suicidal ideation: No Patient has homicidal ideation: No Pulmonary Medical History: Reports: Hx Asthma Neurological Medical History: Denies: Hx Cerebrovascular Accident Endocrine Medical History: Reports: Hx Hypothyroidism Renal/ Medical History: Denies: Hx Peritoneal Dialysis GI Medical History: Reports: Hx Gastroesophageal Reflux Disease Musculoskeletal Medical History: Reports Hx Arthritis Psychiatric Medical History: Reports: Hx Bipolar Disorder, Hx Depression, Hx Schizophrenia Past Surgical History: Reports: Hx Cholecystectomy, Hx Oral Surgery, Hx Orthopedic Surgery - toe repair, Hx Tonsillectomy - Immunizations Hx Diphtheria, Pertussis, Tetanus Vaccination: No Review of Systems - Review of Systems -: Yes All other systems reviewed and negative Physical Exam - Vital signs Vitals: Temp Pulse Resp BP Pulse Ox 98.7 F 93 18 145/94 H 97 07/26/19 09:32 07/26/19 09:32 07/26/19 09:32 07/26/19 09:32 07/26/19 09:32 Interpretation: Normal - General General appearance: Appears well, Alert - HEENT Head: Normocephalic, Atraumatic Eyes: Normal Conjunctiva: Normal Cornea: Normal Extraocular movements intact: Yes Pupils: PERRL Tympanic membrane: Bulging - No erythema. No: Hemotympanum, Injected, Loss of landmarks, Perforation, Purulent effusion Nasal: Clear rhinorrhea Mucous membranes: Normal Neck: Other - No mastoid tenderness - Respiratory Respiratory status: No respiratory distress Chest status: Nontender Breath sounds: Normal Chest palpation: Normal - Cardiovascular Rhythm: Regular Heart sounds: Normal auscultation Murmur: No - Abdominal Inspection: Normal Distension: No distension Bowel sounds: Normal Tenderness: Nontender Organomegaly: No organomegaly - Back Back: Normal, Nontender - Extremities General upper extremity: Normal inspection, Nontender, Normal color, Normal ROM, Normal temperature General lower extremity: Normal inspection, Nontender, Normal color, Normal ROM, Normal temperature, Normal weight bearing. No: Alison's sign - Neurological Neuro grossly intact: Yes Cognition: Normal Orientation: AAOx4 [place] Coma Scale Eye Opening: Spontaneous [place] Coma Scale Verbal: Oriented [place] Coma Scale Motor: Obeys Commands [place] Coma Scale Total: 15 Speech: Normal Motor strength normal: LUE, RUE, LLE, RLE Sensory: Normal - Psychological Associated symptoms: Normal affect, Normal mood - Skin Skin Temperature: Warm Skin Moisture: Dry Skin Color: Normal Course - Re-evaluation Re-evalutation: Patient has had ear pain. Treated with Keflex which I do not think will cover possible sinusitis. Will start patient on Augmentin. Patient has fluid behind bilateral TMs that is more consistent with eustachian tube dysfunction. Will recommend Sudafed and Benadryl. Follow-up with ENT. Of note blood work benign. CT within normal limits. Stable for discharge. Understands and agrees with plan. Return if further concerns or worsening symptoms. Neurovascular intact. - Vital Signs Vital signs: Temp Pulse Resp BP Pulse Ox 98.9 F 78 18 137/84 H 96 07/26/19 18:07 07/26/19 18:07 07/26/19 18:07 07/26/19 18:07 07/26/19 18:07 - Laboratory Result Diagrams: 07/26/19 10:28 07/26/19 10:28 Laboratory results interpreted by me: 07/26/19 10:28 WBC 11.5 H - Diagnostic Test Radiology reviewed: Reports reviewed Discharge - Discharge Clinical Impression: Eustachian tube dysfunction Qualifiers: Laterality: bilateral Qualified Code(s): H69.83 - Other specified disorders of Eustachian tube, bilateral Pain, ear Qualifiers: Laterality: bilateral Qualified Code(s): H92.03 - Otalgia, bilateral Condition: Stable Disposition: HOME, SELF-CARE Instructions: Sinusitis ([facility]) Additional Instructions: Take Sudafed 30-60 milligrams in the morning (1-2 red pills). Take Benadryl 25-50 mg at night (1-2 adult pills). Take augmentin with food. Followup with an ENT doctor. Prescriptions: Amox Tr/Potassium Clavulanate [Augmentin 875-125 Tablet] 1 tab PO BID 14 Days #28 tablet Forms: Return to Work Referrals: STEVE BOATENG DO [ASSOCIATE] - Follow up as needed SOM SULLIVAN MD [ACTIVE STAFF] - Follow up in 3-5 days
[2019-07-26 18:06] VITALS: BP 137/84
== END 2019-07-26 18:07 | disposition home or self-care (01) ==
LOC: ER 09:22
DX: H69.83 Other specified disorders of Eustachian tube, bilateral (principal); H92.03 Otalgia, bilateral; R68.84 Jaw pain; J45.909 Unspecified asthma, uncomplicated
CPT/HCPCS: 99283; 96365; 36415; 85025; 80048; 70450; J0295

== ENCOUNTER 2019-08-05 07:29 | Emergency (ER) | payer SELFPAY ==
[2019-08-05] MEDS ORDERED: MORPHINE SULFATE 10 MG/ML INJ IV ONE (09:27)
[2019-08-05] MEDS ORDERED: ONDANSETRON HCL INJ/PF 4 MG/2 ML SDV IV ONE (09:28)
--- NOTE | 2019-08-05 09:36 | ER Document Report ---
ED General - General Chief Complaint: Abdominal Pain Stated Complaint: ABDOMINAL PAIN Time Seen by Provider: 08/05/19 08:45 TRAVEL OUTSIDE OF THE [place] IN LAST 30 DAYS: No - HPI Notes: Patient is a 39-year-old male who presents emergency department for evaluation of abdominal pain. He states he has a known hernia. He states this morning he was getting up out of bed and he felt a "tearing sensation across the umbilicus area. He has had severe pain that he rates a 5 out of 5 since then. He has not had any bowel movements today, states is not passing any gas. He has some nausea but no emesis. Prior to this episode of increased pain, he had no fevers or chills, no nausea or vomiting, eating and drinking normally. No other acute complaints or concerns. - Related Data Allergies/Adverse Reactions: methadone HCl [From [facility]] Allergy (Unknown, Verified 08/05/19 08:03) methadone Allergy (Verified 08/05/19 08:03) NSAIDS (Non-Steroidal Anti-Inflamma Allergy (Verified 08/05/19 08:03) Home Medications: None Past Medical History - General Information source: Patient - Social History Smoking Status: Never Smoker Family History: Reviewed & Not Pertinent Patient has suicidal ideation: No Patient has homicidal ideation: No Pulmonary Medical History: Reports: Hx Asthma Neurological Medical History: Denies: Hx Cerebrovascular Accident Endocrine Medical History: Reports: Hx Hypothyroidism Renal/ Medical History: Denies: Hx Peritoneal Dialysis GI Medical History: Reports: Hx Gastroesophageal Reflux Disease Musculoskeletal Medical History: Reports Hx Arthritis - Chronic back pain Psychiatric Medical History: Reports: Hx Bipolar Disorder, Hx Depression Past Surgical History: Reports: Hx Cholecystectomy, Hx Oral Surgery, Hx Orthopedic Surgery - toe repair, Hx Tonsillectomy - Immunizations Hx Diphtheria, Pertussis, Tetanus Vaccination: No Review of Systems - Review of Systems Constitutional: No symptoms reported EENT: No symptoms reported Cardiovascular: No symptoms reported Respiratory: No symptoms reported Gastrointestinal: See HPI Genitourinary: No symptoms reported Musculoskeletal: No symptoms reported Skin: No symptoms reported Neurological/Psychological: No symptoms reported Physical Exam - Vital signs Vitals: Temp Pulse Resp BP Pulse Ox 97.8 F 79 19 144/85 H 97 08/05/19 07:32 08/05/19 07:32 08/05/19 07:32 08/05/19 07:32 08/05/19 07:32 - Notes Notes: This is a 39-year-old male who appears her stated age in mild to moderate distress. He is lying on his right side in the lateral, position, moaning intermittently in pain. Vital signs reviewed, please refer to chart. Head is normocephalic, atraumatic. Pupils equal round, reactive to light. Neck is supple without meningismus. Heart is regular rate and rhythm. Lungs are clear to auscultation bilaterally. Abdomen is soft, moderately tender in the umbilicus with palpable small hernia, normoactive bowel sounds throughout. Extremities without cyanosis, clubbing. Posterior calves are nontender. Peripheral pulses are equal. Skin is warm and dry. Patient is awake, alert, neurological exam is nonfocal. Course - Re-evaluation Re-evalutation: 08/05/19 09:36 Patient presents to the emergency department for evaluation. With palpation I was unable to reduce the small hernia at this time. I do suspect this is only fat-containing. Unfortunately, patient is very uncomfortable. I did order blood work, CT scan, IV pain medication. We will continue to monitor. 08/05/19 10:54 CT scan revealed fat-containing umbilical hernia, fat-containing inguinal hernia. We talked at length about these findings. The patient is encouraged strongly to lose weight. He has lost about 50 pounds over the last 2 years. He is going to be referred on to surgery. He was given further fentanyl, I was able to slightly reduce the umbilical hernia and make it softer, although it is not fully reduced. The patient states this is similar to appearance that it is had in the past. He is given lifting instructions and restrictions, instructions on umbilical hernia, inguinal hernia, pain medication and nausea medication, as well as close follow-up. He is to return to the ED with worsening. - Vital Signs Vital signs: Temp Pulse Resp BP Pulse Ox 97.8 F 79 19 144/85 H 97 08/05/19 07:32 08/05/19 07:32 08/05/19 07:32 08/05/19 07:32 08/05/19 07:32 - Laboratory Result Diagrams: 08/05/19 09:40 08/05/19 09:40 Laboratory results interpreted by me: 08/05/19 09:40 WBC 10.9 H Discharge - Discharge Clinical Impression: Umbilical hernia without obstruction or gangrene, Left inguinal hernia Condition: Stable Disposition: HOME, SELF-CARE Instructions: Umbilical Hernia ([facility]) Additional Instructions: Take pain and nausea medication as needed. Avoid lifting anything higher than 5 pounds, avoid anything that increases abdominal pressure. Follow-up with primary care and surgery. Return to the emergency department for worsening or new concerning symptoms of any sort. Prescriptions: Hydrocodone/Acetaminophen [Topock 5-325 mg Tablet] 1 tab PO Q6HP PRN #8 tablet PRN Reason: Ondansetron HCl [Zofran 8 mg Tablet] 8 mg PO Q8HP PRN #30 tablet PRN Reason: Referrals: BYRON ROMAN MD [ACTIVE STAFF] - Follow up as needed
[2019-08-05 10:06] LABS: ABSOLUTE BASOPHILS # (AUTO) 0.1 10^3/uL (0.0-0.2); ABSOLUTE EOSINOPHILS # (AUTO) 0.1 10^3/uL (0.0-0.6); ABSOLUTE LYMPHOCYTES (AUTO) 3.5 10^3/uL (0.5-4.7); ABSOLUTE MONOCYTES (AUTO) 0.8 10^3/uL (0.1-1.4); ABSOLUTE NEUT (AUTO) 6.4 10^3/uL (1.7-8.2); EOSINOPHILS % (AUTO) 1.1 % (0-6); HEMATOCRIT 47.4 % (37.9-51.0); HEMOGLOBIN 16.2 g/dL (13.5-17.0); LYMPHOCYTES % (AUTO) 32.2 % (13-45); MEAN CORPUSCULAR HEMOGLOBIN 30.1 pg (27.0-33.4); MEAN CORPUSCULAR HGB CONC 34.2 g/dL (32.0-36.0); MEAN CORPUSCULAR VOLUME 88 fl (80-97); MONOCYTES % (AUTO) 7.3 % (3-13); PLATELET COUNT 276 10^3/uL (150-450); RED BLOOD COUNT 5.39 10^6/uL (4.35-5.55); RED CELL DISTRIBUTION WIDTH 13.4 % (11.5-14.0); SEGMENTED NEUTROPHILS % (AUTO) 58.4 % (42-78); TOTAL CELLS COUNTED % (AUTO) 100 %; WHITE BLOOD COUNT 10.9 10^3/uL (4.0-10.5)
[2019-08-05 10:15] LABS: ALBUMIN 4.5 g/dL (3.5-5.0); ALKALINE PHOSPHATASE 58 U/L (38-126); ANION GAP 9 (5-19); ASPARTATE AMINO TRANSFERASE 27 U/L (17-59); BILIRUBIN,DIRECT 0.2 mg/dL (0.0-0.4); BLOOD UREA NITROGEN 16 mg/dL (7-20); CALCIUM 9.6 mg/dL (8.4-10.2); CARBON DIOXIDE 27 mmol/L (22-30); CHLORIDE 104 mmol/L (98-107); GLUCOSE 92 mg/dL (75-110); POTASSIUM 4.2 mmol/L (3.6-5.0); TOTAL PROTEIN 7.2 g/dL (6.3-8.2)
[2019-08-05 10:15] LABS: APPEARANCE,URINE CLEAR; BILIRUBIN,URINE NEGATIVE (NEGATIVE); COLOR,URINE YELLOW; GLUCOSE, URINE NEGATIVE (NEGATIVE); KETONES,URINE NEGATIVE (NEGATIVE); LEUKOCYTE ESTERASE,URINE NEGATIVE (NEGATIVE); NITRITE,URINE NEGATIVE (NEGATIVE); PROTEIN,URINE NEGATIVE (NEGATIVE); URINE SPECIFIC GRAVITY 1.019; UROBILINOGEN,URINE NEGATIVE mg/dL (<2.0)
--- NOTE | 2019-08-05 10:19 | RADIOLOGY REPORT (SQ) ---
EXAM DESCRIPTION: CT ABD/PELVIS NO ORAL OR IV COMPLETED DATE/TIME: 08/05/2019 10:06 am REASON FOR STUDY: umbilical hernia pain COMPARISON: None. TECHNIQUE: CT scan of the abdomen and pelvis performed without intravenous or oral contrast. Images reviewed with lung, soft tissue, and bone windows. Reconstructed coronal and sagittal MPR images revi ewed. All images stored on PACS. All CT scanners at this facility use dose modulation, iterative reconstruction, and/or weight based d osing when appropriate to reduce radiation dose to as low as reasonably achievable (ALARA). [facility]: Dose Right [facility]: CareDose [facility]: Dose Right [facility]: Teradose 4D [facility]: [employer] RADIATION DOSE: CT Rad equipment meets quality standard of care and radiation dose reduction techniq ues were employed. CTDIvol: 18.9 mGy. DLP: 1119 mGy-cm.mGy. LIMITATIONS: None. FINDINGS: LOWER CHEST: No significant findings. There is a small pericardial cyst. This is located adjacent to the right atrium. NON-CONTRASTED LIVER, SPLEEN, ADRENALS: Evaluation limited by lack of IV contrast. No identified sign ificant masses. PANCREAS: No masses. No peripancreatic inflammatory changes. GALLBLADDER: Surgically absent. RIGHT KIDNEY AND URETER: No suspicious masses. Assessment limited by lack of IV contrast. No signif icant calcifications. No hydronephrosis or hydroureter. LEFT KIDNEY AND URETER: No suspicious masses. Assessment limited by lack of IV contrast. No signifi cant calcifications. No hydronephrosis or hydroureter. AORTA AND RETROPERITONEUM: No aneurysm. No retroperitoneal masses or adenopathy. BOWEL AND PERITONEAL CAVITY: No obvious obstruction or inflammatory changes. Scattered small mesente ismael lymph nodes. APPENDIX: Normal. PELVIS, BLADDER, AND ABDOMINAL WALL:There is an umbilical hernia containing omental fat. There is a left inguinal hernia containing omental fat. BONES: No significant findings. OTHER: No other significant finding. IMPRESSION: Umbilical hernia containing omental fat. Left inguinal hernia containing omental fat. No other significant findings in the abdomen or pelvis. COMMENT: Quality ID # [id number]: Final reports with documentation of one or more dose reduction techniques (e.g., Automated exposure control, adjustment of the mA and/or kV according to patient size, use of iterative reconstruction technique) TECHNICAL DOCUMENTATION: JOB ID: [id number] [employer]- All Rights Reserved Reading location - IP/workstation name: [email or web address]
[2019-08-05] MEDS ORDERED: FENTANYL CITRATE INJ/PF 100 MCG/2 ML AMPUL IV ONE (10:37)
[2019-08-05 11:15] VITALS: BP 129/80
== END 2019-08-05 11:17 | disposition home or self-care (01) ==
LOC: ER 07:29
DX: K42.9 Umbilical hernia without obstruction or gangrene (principal); K40.90 Unilateral inguinal hernia, without obstruction or gangrene, not specified as recurrent; R10.9 Unspecified abdominal pain; R11.0 Nausea; J45.909 Unspecified asthma, uncomplicated
CPT/HCPCS: 99284; 96374; 96375; 36415; 85025; 80053; 81001; 74176; J3010; J2270; J2405

== ENCOUNTER 2019-08-09 23:38 | Emergency (ER) | payer SELFPAY ==
[2019-08-10 01:51] LABS: ABSOLUTE BASOPHILS # (AUTO) 0.1 10^3/uL (0.0-0.2); ABSOLUTE EOSINOPHILS # (AUTO) 0.2 10^3/uL (0.0-0.6); ABSOLUTE LYMPHOCYTES (AUTO) 4.1 10^3/uL (0.5-4.7); ABSOLUTE MONOCYTES (AUTO) 0.9 10^3/uL (0.1-1.4); ABSOLUTE NEUT (AUTO) 5.4 10^3/uL (1.7-8.2); BASOPHILS % (AUTO) 0.9 % (0-2); EOSINOPHILS % (AUTO) 1.7 % (0-6); HEMATOCRIT 43.3 % (37.9-51.0); HEMOGLOBIN 14.8 g/dL (13.5-17.0); LYMPHOCYTES % (AUTO) 38.5 % (13-45); MEAN CORPUSCULAR HEMOGLOBIN 30.2 pg (27.0-33.4); MEAN CORPUSCULAR HGB CONC 34.3 g/dL (32.0-36.0); MEAN CORPUSCULAR VOLUME 88 fl (80-97); MONOCYTES % (AUTO) 8.7 % (3-13); PLATELET COUNT 261 10^3/uL (150-450); RED BLOOD COUNT 4.91 10^6/uL (4.35-5.55); RED CELL DISTRIBUTION WIDTH 13.7 % (11.5-14.0); SEGMENTED NEUTROPHILS % (AUTO) 50.2 % (42-78); TOTAL CELLS COUNTED % (AUTO) 100 %; WHITE BLOOD COUNT 10.7 10^3/uL (4.0-10.5)
--- NOTE | 2019-08-10 01:52 | ER Document Report ---
ED GI/ - General Chief Complaint: Abdominal Pain Stated Complaint: POSSIBLE HERNIA Time Seen by Provider: 08/10/19 01:25 Primary Care Provider: [facility] [Provider Group] - Follow up in 3-5 days Mode of Arrival: Ambulatory Information source: Patient Notes: 39-year-old male presented to ED for increasing pain nausea since he was seen here on 05 August. He states that is to the point that he cannot work or sleep. He states he cannot walk due to the pain. Patient is alert oriented respirations regular nonlabored speaking in full sentences. TRAVEL OUTSIDE OF THE [place] IN LAST 30 DAYS: No - HPI Patient complains to provider of: Abdominal pain, Other - Nausea Timing/Duration: Persistent, Worse Quality of pain: Sharp, Throbbing Severity at maximum: Severe Severity in ED: Severe Pain Level: 5 Location: Pelvis, Left testicle Associated symptoms: Nausea, Other - Left groin and testicular pain as well as umbilical pain Exacerbated by: Movement, Walking Relieved by: Denies Similar symptoms previously: Yes Recently seen / treated by doctor: Yes - Related Data Allergies/Adverse Reactions: methadone HCl [From Methadose] Allergy (Unknown, Verified 08/05/19 08:03) methadone Allergy (Verified 08/05/19 08:03) NSAIDS (Non-Steroidal Anti-Inflamma Allergy (Verified 08/05/19 08:03) Past Medical History - General Information source: Patient - Social History Smoking Status: Never Smoker Frequency of alcohol use: Rare Drug Abuse: None Lives with: Family Family History: Reviewed & Not Pertinent Patient has suicidal ideation: No Patient has homicidal ideation: No - Past Medical History Cardiac Medical History: Reports: None Pulmonary Medical History: Reports: Hx Asthma EENT Medical History: Reports: None Neurological Medical History: Reports: None Endocrine Medical History: Reports: Hx Hypothyroidism Renal/ Medical History: Reports: None Malignancy Medical History: Reports None GI Medical History: Reports: Hx Gastroesophageal Reflux Disease, Other - Inguinal and umbilical hernia Musculoskeletal Medical History: Reports Hx Arthritis - Chronic back pain Skin Medical History: Reports None Psychiatric Medical History: Reports: Hx Bipolar Disorder, Hx Depression, Hx Schizophrenia Traumatic Medical History: Reports: None Infectious Medical History: Reports: None Past Surgical History: Reports: Hx Cholecystectomy, Hx Oral Surgery, Hx Orthopedic Surgery - toe repair, Hx Tonsillectomy - Immunizations Hx Diphtheria, Pertussis, Tetanus Vaccination: No Review of Systems - Review of Systems Constitutional: No symptoms reported EENT: No symptoms reported Cardiovascular: No symptoms reported Respiratory: No symptoms reported Gastrointestinal: Abdominal pain, Nausea, Vomiting Genitourinary: No symptoms reported Male Genitourinary: Testicular pain Musculoskeletal: No symptoms reported Skin: No symptoms reported Hematologic/Lymphatic: No symptoms reported Neurological/Psychological: No symptoms reported -: Yes All other systems reviewed and negative Physical Exam - Vital signs Vitals: Temp Pulse Resp BP Pulse Ox 98.1 F 82 16 147/87 H 98 08/09/19 23:46 08/09/19 23:46 08/09/19 23:46 08/09/19 23:46 08/09/19 23:46 Interpretation: Normal - General General appearance: Appears well, Alert - HEENT Head: Normocephalic, Atraumatic Eyes: Normal Pupils: PERRL - Respiratory Respiratory status: No respiratory distress Chest status: Nontender Breath sounds: Normal Chest palpation: Normal - Cardiovascular Rhythm: Regular Heart sounds: Normal auscultation Murmur: No - Abdominal Inspection: Normal Distension: No distension Bowel sounds: Normal Tenderness: Nontender Organomegaly: No organomegaly - Genitourinary Tenderness: Testicle tender - Left Cremasteric reflex: Normal Scrotum: No: Swelling, Redness, Hot to touch Notes: Nohemy Guerrero RN was with me to examine the scrotum - Back Back: Normal, Nontender - Extremities General upper extremity: Normal inspection, Nontender, Normal color, Normal ROM, Normal temperature General lower extremity: Normal inspection, Nontender, Normal color, Normal ROM, Normal temperature, Normal weight bearing. No: Alison's sign - Neurological Neuro grossly intact: Yes Cognition: Normal Orientation: AAOx4 [place] Coma Scale Eye Opening: Spontaneous [place] Coma Scale Verbal: Oriented [place] Coma Scale Motor: Obeys Commands [place] Coma Scale Total: 15 Speech: Normal Motor strength normal: LUE, RUE, LLE, RLE Sensory: Normal - Psychological Associated symptoms: Normal affect, Normal mood - Skin Skin Temperature: Warm Skin Moisture: Dry Skin Color: Normal Course - Re-evaluation Re-evalutation: 08/10/19 04:12 Discussed labs and ultrasound with patient and consulted Dr. Monte the surgeon to come and speak with the patient. He did come and speak with the patient extensively patient has been treated with a abdominal binder at this time and is to follow-up with Dr. Monte. - Vital Signs Vital signs: Temp Pulse Resp BP Pulse Ox 98.1 F 65 16 142/91 H 98 08/10/19 04:36 08/10/19 04:36 08/10/19 04:36 08/10/19 04:36 08/10/19 04:36 - Laboratory Result Diagrams: 08/10/19 01:30 08/10/19 01:30 Laboratory results interpreted by me: 08/10/19 08/10/19 01:30 01:30 WBC 10.7 H Chloride 108 H - Diagnostic Test Radiology reviewed: Image reviewed, Reports reviewed Discharge - Discharge Clinical Impression: Umbilical hernia without obstruction or gangrene, Left inguinal hernia Abdominal pain Qualifiers: Abdominal location: generalized Qualified Code(s): R10.84 - Generalized abdominal pain Condition: Stable Disposition: HOME, SELF-CARE Additional Instructions: Abdominal Pain There are many causes of abdominal pain. Pain can mean a serious problem requiring surgery (such as appendicitis). It can also be an innocent problem that goes away on its own (such as a viral infection). Often, time must pass to determine the cause of pain. The physician does not feel that hospitalization is necessary, at present. Things may change within the next 24 hours. Call the doctor or come back for re- examination if any problems occur, such as: (1) Pain that becomes more severe, steady, or becomes concentrated in one specific area. Also, pain that is more severe with movement or coughing. (2) Vomiting that persists or becomes more frequent. (3) Blood in the vomitus, urine, or bowel movements. Blood in the stool may have a tarry or black appearance. (4) Shaking chills or fever greater than 100 degrees F. (5) The abdomen becomes more distended or swollen. (6) Bowel movements cease. (7) Failure to improve as expected. Umbilical Hernia There is a hernia in the belly-button area, called an umbilical hernia. There's a weak spot in the abdominal wall where the umbilical cord was attached. Sometimes this weak spot opens up, and bowel slips out of the abdominal cavity, creating a bulge under the skin at the naval. In infants, a small umbilical hernia may seal off by itself. Adults usually need surgery to repair the hernia. It's important that you follow up as recommended. For now, avoid straining, heavy lifting, and vigorous exercise. If the hernia has just appeared and the naval area is painful, apply ice packs to reduce swelling. Complications occur if bowel gets tightly stuck in the hernia. You should come back immediately if the area becomes increasingly painful, swollen, or discolored, or if you develop abdominal pain and vomiting. You also have an inguinal hernia which is the hernia in the left groin area. The surgeon has come and spoke with you concerning different treatment plans. I have given you the name and number for the surgeon to follow-up in his office and discuss these plans again. I have also given you an abdominal binder which will help with the pain in this area. As the surgeon recommended please use ibuprofen 800 mg 3 times a day with food. FOLLOW-UP CARE: If you have been referred to a physician for follow-up care, call the physicians office for an appointment as you were instructed or within the next two days. If you experience worsening or a significant change in your symptoms, notify the physician immediately or return to the Emergency Department at any time for re-evaluation. Forms: Elevated Blood Pressure Referrals: [facility] [Provider Group] - Follow up in 3-5 days
[2019-08-10 02:34] LABS: ALBUMIN 3.9 g/dL (3.5-5.0); ALKALINE PHOSPHATASE 95 U/L (38-126); ANION GAP 9 (5-19); ASPARTATE AMINO TRANSFERASE 24 U/L (17-59); BILIRUBIN,DIRECT 0.3 mg/dL (0.0-0.4); BILIRUBIN,TOTAL 0.4 mg/dL (0.2-1.3); BLOOD UREA NITROGEN 14 mg/dL (7-20); CALCIUM 9.7 mg/dL (8.4-10.2); CARBON DIOXIDE 28 mmol/L (22-30); CHLORIDE 108 mmol/L (98-107); GLUCOSE 80 mg/dL (75-110); POTASSIUM 3.9 mmol/L (3.6-5.0); TOTAL PROTEIN 6.6 g/dL (6.3-8.2)
[2019-08-10 02:36] LABS: APPEARANCE,URINE CLEAR; BILIRUBIN,URINE NEGATIVE (NEGATIVE); COLOR,URINE YELLOW; GLUCOSE, URINE NEGATIVE (NEGATIVE); KETONES,URINE NEGATIVE (NEGATIVE); PROTEIN,URINE NEGATIVE (NEGATIVE); URINE SPECIFIC GRAVITY 1.029; UROBILINOGEN,URINE NEGATIVE mg/dL (<2.0)
--- NOTE | 2019-08-10 03:15 | RADIOLOGY REPORT (SQ) ---
Ultrasound scrotum and testicles on 08/10/2019 at 2:10 AM CLINICAL INDICATION: Testicular pain COMPARISON: CT from 08/05/2019 FINDINGS: Multiple sonographic images are obtained throughout the scrotum and testicles, both transverse and sagittal images are obtained. Bilateral testicles are homogeneous in echotexture without evidence of an intratesticular mass. Flow is demonstrated within both testicles without evidence of torsion or unilateral increased flow to suggest epididymoorchitis. Very small bilateral hydroceles are noted. Left inguinal hernia is noted containing fat as was noted on prior CT. No peristalsing bowel is noted in the hernia. IMPRESSION: 1. Left inguinal hernia containing fat. 2. Very small bilateral hydroceles, otherwise unremarkable.
--- NOTE | 2019-08-10 04:38 | PDOC CONSULTATION ---
Consultation Consult Date: 08/10/19 Attending physician:: LIEN LONG Provider Consulted: WES ARANGO Consult reason:: umbilical and left inguinal hernia History of Present Illness History of Present Illness: TREY CHEN JR is a 39 year old male4 presented to ED for increasing pain nausea since he was seen here on 05 August. He states that is to the point that he cannot work or sleep. He states he cannot walk due to the pain. Patient is alert oriented respirations regular nonlabored speaking in full sentences c/o left groin pain and umbilical pain w/u in er consisted of a ultrasound and review of previous ct denies vomiting, states it hurts when lifting. Past Medical History Cardiac Medical History: Reports: None Pulmonary Medical History: Reports: Asthma EENT Medical History: Reports: None Neurological Medical History: Reports: None Endocrine Medical History: Reports: Hypothyroidism Renal/ Medical History: Reports: None Malignancy Medical History: Reports: None GI Medical History: Reports: Gastroesophageal Reflux Disease, Other - Inguinal and umbilical hernia Musculoskeltal Medical History: Reports: Arthritis - Chronic back pain Skin Medical History: Reports: None Psychiatric Medical History: Reports: Bipolar Disorder, Depression Traumatic Medical History: Reports: None Infectious Medical History: Reports: None Past Surgical History Past Surgical History: Reports: Cholecystectomy, Orthopedic Surgery - toe repair, Tonsillectomy Social History Lives with: Family Smoking Status: Never Smoker Drugs: None Family History Family History: Reviewed & Not Pertinent Parental Family History Reviewed: No Children Family History Reviewed: NA Sibling(s) Family History Reviewed.: NA Medication/Allergy Home Medications: Ziprasidone HCl [Geodon 60 mg Capsule] 60 mg PO QAM 09/12/12 Levothyroxine Sodium [Synthroid 0.112 mg Tablet] 0.112 mg PO DAILY #30 tablet 09/17/12 Clonazepam [Klonopin 1 mg Tablet Rapid Dissolve] 0.5 mg PO QAM 02/05/13 Gabapentin [Neurontin] 300 mg PO TID 02/05/13 Trazodone HCl [Desyrel 50 Mg Tablet] 100 mg PO QHS 02/05/13 Ziprasidone HCl 120 mg PO QHS 02/05/13 Clonazepam [Klonopin 1 mg Tablet] 1 mg PO QPM #7 tablet 02/06/13 Paroxetine HCl [Paxil 20 mg Tablet] 20 mg PO QAM #7 tablet 02/06/13 Oxycodone HCl/Acetaminophen [Percocet 5-325 mg Tablet] 1 - 2 tab PO Q4H PRN #25 tablet 04/02/13 Hydrocodone/Acetaminophen [Vicodin 5-300 mg Tablet] 1 each PO Q4 PRN #10 tablet 08/14/13 Haloperidol [Haldol 5 mg Tablet] 5 mg PO BID 03/30/14 Oxycodone HCl/Acetaminophen [Percocet 5-325 mg Tablet] 1 - 2 tab PO ASDIR PRN #15 tablet 05/20/15 Ondansetron HCl [Zofran 4 mg Tablet] 1 - 2 tab PO Q6 PRN #15 tablet 12/22/15 Ondansetron [Zofran Odt 4 mg Tablet] 1 tab PO Q6H #15 tab.rapdis 12/24/15 Acetaminophen with Codeine [Acetaminophen-Cod #4 Tablet] 1 tab PO Q6H 07/11/16 Albuterol Sulfate [Albuterol Sulfate 2.5mg/3 mL] 07/11/16 Albuterol Sulfate [Proair HFA] 2 puff PO Q6H 07/11/16 Benztropine Mesylate 1 mg PO DAILY 07/11/16 Budesonide/Formoterol Fumarate [Symbicort Hfa 160-4.5 Mcg Inhaler 6 gm] 2 puff IH Q12 07/11/16 Doxepin HCl [Silenor] 6 mg PO DAILY 07/11/16 Gabapentin 800 mg PO TID 07/11/16 Haloperidol 10 mg PO QHS 07/11/16 Levothyroxine Sodium 200 mcg PO DAILY 07/11/16 [place] Carbonate 600 mg PO QHS 07/11/16 Omeprazole Magnesium [Prilosec Otc] 20 mg PO DAILY 07/11/16 Prazosin HCl 2 mg PO QHS 07/11/16 Prednisone [Deltasone 10 mg Tablet] 10 mg PO ASDIR PRN #15 tablet 04/13/18 Lactulose [Cephulac Syrup 20 gm/30 ml Udcup] 20 gm PO DAILY #120 udc 08/03/18 Levothyroxine Sodium [Synthroid 0.075 mg Tablet] 0.075 mg PO DAILY #30 tablet 08/03/18 Acetaminophen with Codeine [Tylenol #3 Tablet] 1 each PO Q4 PRN #15 tablet 12/12/18 Doxycycline Hyclate 100 mg PO BID #20 capsule 12/12/18 Cephalexin Monohydrate [Keflex 500 mg Capsule] 500 mg PO TID #30 capsule 06/14/19 Amox Tr/Potassium Clavulanate [Augmentin 875-125 Tablet] 1 tab PO BID 14 Days #28 tablet 07/26/19 Hydrocodone/Acetaminophen [Pauline 5-325 mg Tablet] 1 tab PO Q6HP PRN #8 tablet 08/05/19 Ondansetron HCl [Zofran 8 mg Tablet] 8 mg PO Q8HP PRN #30 tablet 08/05/19 Allergies/Adverse Reactions: methadone HCl [From Methadose] Allergy (Unknown, Verified 08/05/19 08:03) methadone Allergy (Verified 08/05/19 08:03) NSAIDS (Non-Steroidal Anti-Inflamma Allergy (Verified 08/05/19 08:03) Review of Systems Constitutional: PRESENT: fatigue Eyes: ABSENT: as per HPI, visual disturbances, other Ears: ABSENT: as per HPI, hearing changes, other Nose, Mouth, and Throat: ABSENT: as per HPI, headache(s), mouth pain, sore throat, vertigo, other Breasts: ABSENT: as per HPI, other Cardiovascular: ABSENT: as per HPI, chest pain, dyspnea on exertion, edema, orthropnea, palpitations, other Respiratory: ABSENT: as per HPI, cough, dyspnea, hemoptysis, sputum, other Gastrointestinal: PRESENT: as per HPI, other - periumbilical pain with lifting Genitourinary: ABSENT: as per HPI, difficulty urinating, dysuria, hematuria, nocturia, other Musculoskeletal: PRESENT: back pain Integumentary: ABSENT: as per HPI, diaphoresis, erythema, lesions, pruritus, rash, wounds, other Neurological: ABSENT: as per HPI, abnormal gait, abnormal movements, abnormal speech, confusion, convulsions, dizziness, focal weakness, frequent falls, lack of coordination, memory loss, numbness, paresthesias, restless legs, syncope, tingling, tremor(s), vertigo, weakness, other Psychiatric: PRESENT: anxiety Endocrine: ABSENT: as per HPI, cold intolerance, flushing, heat intolerance, menstrual abnormalities, polydipsia, polyphagia, polyuria, other Hematologic/Lymphatic: ABSENT: as per HPI, easy bleeding, easy bruising, lymphadenopathy, other Allergic/Immunologic: ABSENT: as per HPI, seasonal rhinorrhea, other Physical Exam Vital Signs: Temp Pulse Resp BP Pulse Ox 98.1 F 82 16 147/87 H 98 08/09/19 23:46 08/09/19 23:46 08/09/19 23:46 08/09/19 23:46 08/09/19 23:46 Intake & Output 08/08/19 08/09/19 08/10/19 06:59 06:59 06:59 Weight 140.9 kg General appearance: PRESENT: mild distress Head exam: PRESENT: other - multiple facial tattoos Eye exam: PRESENT: EOMI Ear exam: ABSENT: bleeding, drainage, normal external ear exam, TM's normal bilaterally, other Mouth exam: PRESENT: dry mucosa Neck exam: PRESENT: full ROM Respiratory exam: PRESENT: clear to auscultation omar Cardiovascular exam: PRESENT: RRR Pulses: PRESENT: normal radial pulses, normal femoral pulses Vascular exam: PRESENT: normal capillary refill Breast: PRESENT: Normal GI/Abdominal exam: PRESENT: hernia - Reducible left groin hernia, soft, other - Umbilical hernia easily reducible approximately 2 cm in Hamiter. Rectal exam: PRESENT: deferred Extremities exam: PRESENT: full ROM Musculoskeletal exam: PRESENT: full ROM Neurological exam: PRESENT: alert, awake, oriented to person, oriented to place Skin exam: PRESENT: dry Results Laboratory Results: 08/10/19 01:30 08/10/19 01:30 08/10/19 08/10/19 08/10/19 01:30 01:30 02:00 WBC 10.7 H RBC 4.91 Hgb 14.8 Hct 43.3 MCV 88 MCH 30.2 MCHC 34.3 RDW 13.7 Plt Count 261 Seg Neutrophils % 50.2 Sodium 144.8 Potassium 3.9 Chloride 108 H Carbon Dioxide 28 Anion Gap 9 BUN 14 Creatinine 1.08 Est GFR ( Amer) > 60 Glucose 80 Calcium 9.7 Total Bilirubin 0.4 AST 24 Alkaline Phosphatase 95 Total Protein 6.6 Albumin 3.9 Urine Color YELLOW Urine Appearance CLEAR Urine pH 5.0 Ur Specific [place] 1.029 Urine Protein NEGATIVE Urine Glucose (UA) NEGATIVE Urine Ketones NEGATIVE Urine Blood NEGATIVE Urine RBC (Auto) 0 Impressions: Scrotum Ultrasound 08/10/19 01:51 IMPRESSION: 1. Left inguinal hernia containing fat. 2. Very small bilateral hydroceles, otherwise unremarkable. Assessment & Plan - Plan Summary Plan Summary: Pression umbilical hernia and left inguinal hernia Physical examination and radiologic evaluation shows the left inguinal hernia is reducible and contains only fat as very as well as the umbilical hernia which is only fat intermittently incarcerated in it. Recommendation is abdominal binder and consideration of a inguinal truss patient should follow-up in surgical clinic for evaluation of inguinal hernia repair ho kyraver patient should be encouraged to lose some weight as his current weight is greater than 300 pounds with a significant amount of central obesity which would result in a high recurrence rate if the umbilical hernia is repaired.
[2019-08-10 04:39] VITALS: BP 142/91
== END 2019-08-10 04:38 | disposition home or self-care (01) ==
LOC: ER 23:38
DX: K42.9 Umbilical hernia without obstruction or gangrene (principal); K40.90 Unilateral inguinal hernia, without obstruction or gangrene, not specified as recurrent; R10.9 Unspecified abdominal pain; N50.812 Left testicular pain; R11.2 Nausea with vomiting, unspecified; J45.909 Unspecified asthma, uncomplicated
CPT/HCPCS: 36415; 76870; 80053; 81001; 85025; 93976; 99284